=== PATIENT | male | born 1950 | race Caucasian/White ===

== ENCOUNTER 2024-04-26 04:30 | Observation (INO) | payer MEDICARE, SELFPAY ==
[2024-04-26 04:20] VITALS: BP 165/70; PULSE 62; RESP 18; TEMP 36.7; O2SAT 95
--- NOTE | 2024-04-26 04:27 | HP.PCM.HOS_ITS ---
[facility] - General General Date of Admission: 04/26/24 Date of Service: 04/26/24 Chief Complaint: Left DFU with Cellulitis, Elevated Troponin and AMS. HPI Narrative JEAN CARLOS HUGHES, is a 73 M with a past medical history of essential hypertension, hyperlipidemia, DM-2; uncontrolled with hyperglycemia, diabetic neuropathy, CAD; s/p CABG x 3 (~2009) by Dr. Salas at the [facility], history of CHF; with recent exacerbation treated at [facility] in Late February 2024, PVD; s/p femoral bypasses of both lower extremities, chronic LE lymphedema; with chronic venous stasis followed by Home Health RN, history of CVA, CKD; likely stage III, history of cholecystectomy, depression, OA, listed allergy to PCN and recently diagnosed DFU of the 2nf toe of the Left foot ~6 weeks ago with failure to resolve after full courses of oral Keflex and Bactrim prescribed by his PCP who was directly transferred from [facility] ER to for ongoing care of Left DFU with cellulitis and suspected osteomyelitis complicated by elevated initial troponin of ~1.2K pg/mL and altered mental status. Mr. Hughes reports his acute symptoms began approximately 3 days prior to admission with dizziness, shakiness and intermittent chills. Also according to the records his grandson came to visit him from [place] today and found him confused and lethargic and therefore had him sent to the ER at [facility] with documentation revealing he was only oriented to self and place upon his initial evaluation. He denies related fever, chest pain, chest pressure, heart racing or palpitations and he further states he has had no active cardiac issues since his CABG and he is chronically inactive. He also denies a known history of osteomyelitis, previous amputations or similar previous episodes. After his arrival here he had his pulses checked via doppler and was markedly diminished on the Left. His CT scan of the abdomen [facility] Medical History (Updated 04/26/24 @ 04:[address] Doni Carter, DO) Diabetes Congestive heart failure (CHF) Stroke/cerebrovascular accident Home Medications ?Medication ?Instructions ?Recorded ?Last Taken ?Type atorvastatin 40 mg tablet 40 mg PO DAILY 04/26/24 Unknown History bupropion HCl 300 mg 24 hr tablet, 300 mg PO DAILY 04/26/24 Unknown History extended release glimepiride 1 mg tablet 1 mg PO DAILY 04/26/24 Unknown History lisinopril 20 mg tablet 20 mg PO DAILY 04/26/24 Unknown History meloxicam 7.5 mg tablet 7.5 mg PO DAILY PRN back 04/26/24 Unknown History Allergy/AdvReac Type Severity Reaction Status Date / Time Penicillins Allergy PT UNSURE Unverified 04/26/24 05:13 OF REACTION Surgical History (Updated 04/26/24 @ 04:39 by Lisa Agarwal) History of cholecystectomy Hx of CABG Social History Smoking Status: Current every day smoker tobacco type: cigarettes and smokeless tobacco Assessment & Plan Assessment/Plan (1) Diabetic foot ulcer associated with diabetes mellitus due to underlying condition: QUALIFIERS: Diabetic foot ulcer location: toe Laterality: left Non-pressure ulcer stage: unspecified non-pressure ulcer stage Qualified Code(s): E08.621 - Diabetes mellitus due to underlying condition with foot ulcer; L97.529 - Non-pressure chronic ulcer of other part of left foot with unspecified severity (2) Cellulitis: (3) DM type 2, uncontrolled, with lower extremity ulcer: (4) Elevated troponin: PLAN: Plan 1. Left DFU with cellulitis and suspected osteomyelitis with listed allergy to PCN in the setting of DM-2; uncontrolled with hyperglycemia - Admit to PCU under contact precautions. Start broad-spectrum antibiotic coverage with IV Vancomycin and IV Levaquin and await culture and sensitivity data. Check CT scan of the Left Foot to confirm suspicion of osteomyelitis. Check HgbA1c to objectively assess quality of diabetic control. Give Tylenol prn for [id number] (level 1-5/10) pain or fever. Give Morphine IV prn for severe (level 6-10/10) pain. Keep NPO except for sips, ice chips and medications until need podiatry can evaluate and need for I&D has been ruled out. Finally, we will consult Dr. Hedrick of the podiatry service to see this patient on-rounds in the AM for further recommendations with help appreciated in advance. 2. Elevated initial troponin of ~1.2K pg/mL present on admission likely due to NSTEMI-II in the setting of known CAD; sp CABG complicating #1 - Continue ECASA and statin plus give full-dose Lovenox. Serialize troponin. Check echocardiogram to evaluate LVEF. Finally, we will consult [facility] to see this patient on-rounds in the AM with likely need for surgical intervention to treat #1 with need for formal preoperative cardiac risk evaluation with help appreciated in advance. 3. Metabolic Encephalopathy was present during admission to [facility] arising from #1 & #2 - Patient's mental status has apparently improved with his initial round of treatment. 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 Otherwise, continue supportive care outlined above and monitor for improvement. 4. Essential hypertension - Continue home regimen plus give prn IV Hydralazine for systolic blood pressure > 160 mmHg. 5. Hyperlipidemia - Resume statin and check Lipid Profile in light of #2. 6. History of CHF - Apparently stable with no evidence of acute flare at this time. Echocardiogram pending to evaluate LVEF for #2. 7. History of CVA - Noted. 8. History of cholecystectomy - Noted. 9. Depression - Continue home medications as previous. 10. OA - Give Tylenol prn. 11. DVT prophylaxis - Patient on full-dose Lovenox for #2. Total time: Approximately 75 minutes. Charges/Coding Visit Charges Inpatient E&M: 57672 Init Hosp L3
--- NOTE | 2024-04-26 04:27 | PCM.HP.STD ---
[facility] - General General Date of Admission: 04/26/24 Date of Service: 04/26/24 Chief Complaint: Left DFU with Cellulitis, Elevated Troponin and AMS. HPI Narrative JEAN CARLOS HUGHES, is a 73 M with a past medical history of essential hypertension, hyperlipidemia, DM-2; uncontrolled with hyperglycemia, diabetic neuropathy, obesity; with BMI of 39.4 this admission with suspected JADA, chronic tobacco abuse; ongoing with patient stating he is trying to quit, CAD; s/p CABG x 3 (~2009) by Dr. Salas at the [facility], history of CHF; with recent exacerbation treated at [facility] in Late February 2024, PVD; s/p femoral bypasses of both lower extremities, chronic LE lymphedema; with chronic venous stasis followed by Home Health RN, history of CVA, CKD; likely stage III, history of cholecystectomy, history of appendectomy, depression, OA; s/p bilateral TKR's and THR, listed allergy to PCN and recently diagnosed DFU of the 2nf toe of the Left foot ~6 weeks ago with failure to resolve after full courses of oral Keflex and Bactrim prescribed by his PCP who was directly transferred from [facility] ER to [facility] for ongoing care of Left DFU with cellulitis and suspected osteomyelitis with leukocytosis of 14.6K present on admission complicated by elevated initial troponin of 1.253K pg/mL and altered mental status. Mr. Hughes reports his acute symptoms began approximately 3 days prior to admission with dizziness, shakiness and intermittent chills. Also according to the records his grandson came to visit him from [place] today and found him confused and lethargic and therefore had him sent to the ER at [facility] with documentation revealing he was only oriented to self and place upon his initial evaluation. He denies related fever, chest pain, chest pressure, heart racing or palpitations and he further states he has had no active cardiac issues since his CABG and he is chronically inactive. He states his sugars are typically between 120-150 mg/dL but they trend higher if he eats late and/or has desert. He also denies a known history of osteomyelitis, previous amputations or similar previous episodes. After his arrival here he had his pulses checked via doppler and was markedly diminished on the Left. His CT scan of the head at [facility] was negative for acute pathologic changes but did show a chronic appearing lacunar infarct in the Right thalamus with small bilateral mastoid effusions that were nonspecific. Also his Ct scan of the abdomen and pelvis there showed no acute abnormality but did reveal cirrhotic morphology of the liver compatible with portal venous hypertension including a dilated main pulmonary vein along with a fusiform infrarenal AAA measuring ~3.9 cm with severe atherosclerosis of the vascular system and atrophy of the Left kidney likely related to chronic ischemia with followup recommended every 2 years. CXR done there showed no acute changes with sternotomy wires noted. He was then treated with IV Vancomycin and IV Merrem along with a 1L bolus of NS there and then the hospitalist service here was contacted to arrange transfer due to his medical complexity. He was then admitted to the PCU for ongoing care for a stay that is expected to extend beyond 2 midnights. [facility] Medical History (Updated 04/26/24 @ 06:[address] Doni Carter DO) Diabetes Congestive heart failure (CHF) Stroke/cerebrovascular accident Home Medications ?Medication ?Instructions ?Recorded ?Last Taken ?Type atorvastatin 40 mg tablet 40 mg PO DAILY 04/26/24 Unknown History bupropion HCl 300 mg 24 hr tablet, 300 mg PO DAILY 04/26/24 Unknown History extended release glimepiride 1 mg tablet 1 mg PO DAILY 04/26/24 Unknown History lisinopril 20 mg tablet 20 mg PO DAILY 04/26/24 Unknown History meloxicam 7.5 mg tablet 7.5 mg PO DAILY PRN back 04/26/24 Unknown History Allergy/AdvReac Type Severity Reaction Status Date / Time Penicillins Allergy PT UNSURE Unverified 04/26/24 05:13 OF REACTION Surgical History (Updated 04/26/24 @ 06:[address] Doni Carter DO) History of cholecystectomy Hx of CABG Social History Smoking Status: Current every day smoker tobacco type: cigarettes and smokeless tobacco ROS ROS Narrative Review of systems: Constitutional: Patient admits to intermittent chills and vertigo with confusion noted upon his arrival to [facility] as per HPI. He denies fever. Eyes: Patient denies visual changes or discharge from eyes. ENT: Patient denies ear pain, runny nose or sore throat. CV: Patient denies chest pain, chest pressure, palpitations or heart racing. Resp: Patient denies SOB or cough. GI: Patient denies abdominal pain, nausea, vomiting, constipation or diarrhea. : Patient denies dysuria or hematuria. MSK: Patient admits to persistent ~1 cm ulceration over the dorsal aspect his Left 2nd toe along with scabbing over three toes of his Right foot along with diminished doppler pulses of his Left foot as per HPI. Skin: Patient admits to chronic LE lymphedema with chronic venous stasis as per HPI. Allergy: Patient denies lip swelling, tongue swelling or urticaria. Hematology: Patient denies easy bleeding or easy bruising. Psychology: Patient denies uncontrolled depression or anxiety. 14 point ROS otherwise negative except for positives noted above in HPI. Physical Exam Const alert, oriented x3 and no apparent distress Constitutional Narrative: Patient is obese and appears nontoxic. General Appearance: cooperative HEENT normocephalic, head/scalp atraumatic, hearing grossly normal bilaterally and moist oral mucous membranes Eyes PERRL and EOMs intact bilaterally Neck no lymphadenopathy and supple Resp normal respiratory effort, no retractions, no use of accessory muscles and clear to auscultation bilaterally Cardio regular rate and regular rhythm GI normal to inspection, nondistended, normoactive bowel sounds, soft to palpation, non-tender and non-distended GI Narrative: Obese. Extremity Extremity Narrative: Bilateral LE lymphedema with chronic venous stasis changes along with ~ 1 cm ulceration over the DIP joint of his Left 2nd toe. Skin Skin Narrative: Bilateral LE lymphedema with chronic venous stasis changes along with ~ 1 cm ulceration over the DIP joint of his Left 2nd toe. Neuro oriented x3, CN's II-XII intact bilaterally, moves all extremities and no focal motor deficits Sensorium / Orientation: awake, alert, oriented to person, oriented to place and oriented to time Speech: speech normal Psych affect normal Results Medical Records Data Attestation: I reviewed the patient's medical records Lab / Micro Data Attestation: I reviewed the patient's lab results. Assessment & Plan Assessment/Plan (1) Diabetic foot ulcer associated with diabetes mellitus due to underlying condition: QUALIFIERS: Diabetic foot ulcer location: toe Laterality: left Non-pressure ulcer stage: unspecified non-pressure ulcer stage Qualified Code(s): E08.621 - Diabetes mellitus due to underlying condition with foot ulcer; L97.529 - Non-pressure chronic ulcer of other part of left foot with unspecified severity (2) Cellulitis: QUALIFIERS: Site of cellulitis: extremity Site of cellulitis of extremity: toe Laterality: left Qualified Code(s): L03.032 - Cellulitis of left toe (3) Elevated troponin: (4) DM type 2, uncontrolled, with lower extremity ulcer: (5) Metabolic encephalopathy: (6) History of coronary artery bypass graft x 3: (7) History of femoropopliteal bypass: (8) History of CHF (congestive heart failure): PLAN: Plan 1. Left DFU with cellulitis and leukocytosis of 14.6K present on admission with suspected osteomyelitis with listed allergy to PCN in the setting of DM-2; uncontrolled with hyperglycemia and diabetic neuropathy - Admit to PCU under contact precautions. Start broad-spectrum antibiotic coverage with IV Vancomycin and IV Levaquin and await culture and sensitivity data. Check CT scan of the Left Foot to confirm suspicion of osteomyelitis. Check HgbA1c to objectively assess quality of diabetic control. Give Tylenol prn for [id number] (level 1-5/10) pain or fever. Give Morphine IV prn for severe (level 6-10/10) pain. Keep NPO except for sips, ice chips and medications until need podiatry can evaluate and need for I&D has been ruled out. Finally, we will consult Dr. Hedrick of the podiatry service to see this patient on-rounds in the AM for further recommendations with help appreciated in advance. 2. Elevated initial troponin of ~1.2K pg/mL present on admission likely due to NSTEMI-II in the setting of known CAD; sp CABG complicating #1 - Continue ECASA and statin plus give full-dose Lovenox. Serialize troponin. Check echocardiogram to evaluate LVEF. Finally, we will consult [facility] to see this patient on-rounds in the AM with likely need for surgical intervention to treat #1 with need for formal preoperative cardiac risk evaluation with help appreciated in advance. 3. PVD; s/p femoral bypasses of both lower extremities with diminished doppler pluses on the Left present on admission adding to the pathology of #1 & #[address] scan of the abdomen and pelvis there showed no acute abnormality but did reveal cirrhotic morphology of the liver compatible with portal venous hypertension including a dilated main pulmonary vein along with a fusiform infrarenal AAA measuring ~3.9 cm with severe atherosclerosis of the vascular system and atrophy of the Left kidney likely related to chronic ischemia with followup recommended every 2 years - We will consult vascular surgery to see this patient on-rounds in the AM for further recommendations with help appreciated in advance. 4. Metabolic Encephalopathy was present during admission to [facility] arising from #1 - #3 - Patient's mental status has apparently improved with his initial round of treatment. 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 Otherwise, continue supportive care outlined above and monitor for improvement. 5. Chronic Tobacco Abuse; ongoing and adding to the pathology of #1 - #4 - Tobacco cessation will be strongly encouraged with Nicotine patch offered to control cravings. 6. Essential hypertension - Continue home regimen plus give prn IV Hydralazine for systolic blood pressure > 160 mmHg. 7. Hyperlipidemia - Resume statin and check Lipid Profile in light of #2. 8. History of CHF - Apparently stable with no evidence of acute flare at this time. Echocardiogram pending to evaluate LVEF for #2. 9. History of CVA with Head CT at previous hospital revealing chronic appearing lacunar infarct in the Right thalamus with small bilateral mastoid effusions that were nonspecific - Noted. 10. Obesity; with BMI of 39.4 this admission with suspected JADA 11. History of cholecystectomy - Noted. 12. Depression - Continue home medications as previous. 13. OA; s/p bilateral TKR's and THR - Give Tylenol prn. 14. DVT prophylaxis - Patient on full-dose Lovenox for #2. Total time: Approximately 75 minutes. Charges/Coding Visit Charges Inpatient E&M: 92658 Init Hosp L3
[2024-04-26 04:28] VITALS: BMI 39.4
--- NOTE | 2024-04-26 04:33 | CT_ITS ---
CT LEFT LOWER EXTREMITY WITHOUT CONTRAST CLINICAL INDICATION: Left DFU; evaluate for osteomyelitis. TECHNIQUE: Axial CT images of the LEFT lower extremity was performed without IV contrast material. Coronal and sagittal reformats were provided. The protocol utilizes one or more of the following dose reduction techniques: automated exposure control, adjustment of mA and/or kV according to patient size,and/or use of iterative reconstruction technique. RADIATION DOSAGE (If Supplied By Facility): CTDIvol = ( 15.35 ) mGy, DLP = ( 499.60 ) mGycm COMPARISON: No relevant prior comparison study available FINDINGS: Bones: Osseous structures are essentially unremarkable without evidence of fracture or dislocation. No lytic or blastic osseous masses. Soft Tissues: Diffuse soft tissue swelling and edema no evidence of abnormal fluid collection or drainable abscess. No gas is seen in the soft tissues. Atrophic changes of the deep muscular structures. CT/Extremity Lower without Contra IMPRESSION: 1. Diffuse soft tissue swelling and edema. 2. No evidence of drainable abscess or gas in the soft tissues. 3. No evidence of destructive bony process. Electronically Signed: Mitchell Del Cid MD at 9:08 EDT ,
--- NOTE | 2024-04-26 04:43 | ECHOCS_ITS ---
Reason For Study: s/p NJ Procedure This was a 2D Doppler, Color Flow transthoracic echocardiogram. Contrast injection was performed. Exam performed portable in patient room. Left Ventricle Normal LV size. Mild concentric left ventricular hypertrophy. The left ventricular ejection fraction is 45 %. There is mild global hypokinesis of the left ventricle. Right Ventricle Normal RV size. Normal systolic function. Atria The left atrium is moderately enlarged. Normal right atrium. Mitral Valve Bileaflet diffuse mitral valve thickening. Mild (1+) eccentric mitral valve insufficiency. Tricuspid Valve Normal tricuspid valve. Mild to moderate (1-2+) tricuspid valve insufficiency. Pulmonary artery systolic pressure is 46 mmHg. Aortic Valve Trisinus/trileaflet aortic valve. Mild focal aortic valve calcification. Great Vessels Normal aortic root. Pericardium/Pleural No pericardial effusion. Medication Diluted definity 2.5ml given slow IV push to enhance endocardial definition. MMode/2D Measurements & Calculations LVIDd: 4.9 cm IVSd: 1.3 cm LVOT diam: 2.2 cm LVIDs: 3.9 cm LVPWd: 1.2 cm LVOT area: 3.7 cm2 RVDd: 4.3 cm FS: 19.3 % LAV(MOD-bp): 101.7 ml LVAd ap4: 30.0 cm2 SV(MOD-sp4): 48.6 ml LAV(MOD-bp) Indexed: 42.0 ml/m2 LVLd ap4: 7.4 cm LAV(MOD-sp2): 107.1 ml EDV(MOD-sp4): 101.1 ml LAV(MOD-sp4): 96.6 ml EDV(sp4-el): 104.0 ml LVAs ap4: 20.0 cm2 LVLs ap4: 6.6 cm ESV(MOD-sp4): 52.5 ml ESV(sp4-el): 51.4 ml EF(MOD-sp4): 48.0 % EF(sp4-el): 50.6 % SV(sp4-el): 52.6 ml LA A4 area: 30.4 cm2 RA A4 area: 22.0 cm2 TAPSE: 1.4 cm Doppler Measurements & Calculations MV E max kristian: 137.6 cm/sec Lat Peak E' Kristian: 6.5 cm/sec Med Peak E' Kristian: 5.0 cm/sec E/E' lat: 21.3 E/E' med: 27.3 MV V2 max: 137.9 cm/sec Ao V2 max: 154.3 cm/sec LV V1 max: 119.0 cm/sec MV max P.6 mmHg Ao max P.5 mmHg LV V1 max P.7 mmHg MV V2 mean: 51.7 cm/sec Ao V2 mean: 107.5 cm/sec LV V1 mean P.1 mmHg MV mean P.7 mmHg Ao mean P.2 mmHg LV V1 mean: 82.8 cm/sec MV V2 VTI: 41.0 cm Ao V2 VTI: 36.4 cm LV V1 VTI: 26.8 cm MVA(VTI): 2.4 cm2 AV (velocity ratio): 0.73 JAYSON(I,D): 2.7 cm2 JAYSON(V,D): 2.9 cm2 SV(LVOT): 98.9 ml PA V2 max: 93.1 cm/sec TR max kristian: 329.0 cm/sec PA max PG (full): 1.2 mmHg TR max P.3 mmHg ECHO/Echo Complete W/ Contrast Interpretation Summary The left ventricular ejection fraction is 45 %. Normal LV size. Mild (1+) eccentric mitral valve insufficiency. Mild concentric left ventricular hypertrophy. Mild to moderate (1-2+) tricuspid valve insufficiency. Pulmonary artery systolic pressure is 46 mmHg. Ordering Physician: Doni Carter Referring Physician: Thao Diaz Performed By: Briana Conte RVT, RDCS and Student
--- NOTE | 2024-04-26 04:45 | SDCEKG_ITS ---
Test Reason : CP ADMIT Blood Pressure : / mmHG Vent. Rate : 065 BPM Atrial Rate : 000 BPM P-R Int : 000 ms QRS Dur : 148 ms QT Int : 440 ms P-R-T Axes : 000 -46 100 degrees QTc Int : 457 ms Atrial fibrillation Left axis deviation Non-specific intra-ventricular conduction block Minimal voltage criteria for LVH, may be normal variant ( Tyler product ) Abnormal ECG No previous ECGs available Confirmed by Al Lorenzo ([id number]), features editor CHELY LOZA ([id number]) on 04/28/2024 9:22:52 AM Referred By: Confirmed By:Al Lorenzo
[2024-04-26 04:47] VITALS: BMI 17.9
[2024-04-26] MEDS: 0.9% Normal Saline (1000mL) 1,000 ML 70 ML IV ×2 (05:50→22:09)
[2024-04-26] MEDS: Enoxaparin 60 MG/0.6 ML Syringe SC (06:04)
[2024-04-26] MEDS: Pravastatin 40 MG Tablet PO ×2 (06:04→22:13)
[2024-04-26] MEDS: Aspirin 325 MG Tablet PO (06:04)
[2024-04-26 06:37] VITALS: BMI 39.4
--- NOTE | 2024-04-26 06:52 | PN_ITS ---
Assessment & Plan Assessment/Plan (1) DM type 2, uncontrolled, with lower extremity ulcer: PLAN: Plan Patient is a 73-year-old gentleman with multiple comorbidities including coronary artery disease with previous CABG, peripheral arterial disease with femoral bypasses involving both lower extremities who was transferred from [facility] on account of left DFU with cellulitis and suspected osteomyelitis as well as decreased pulses in the left lower extremities. Patient was also found to have elevated troponin on admission. Subsequently admitted to a monitored bed for further management. Patient initial assessment including history and physical, diagnostic data and management orders reviewed will follow.
[2024-04-26 06:53] LABS: ALB/GLOB Ratio 0.7 RATIO (0.9-2.4); AST(SGOT) 33 U/L (15-37); Alanine Aminotransfer ALT/SGPT 37 U/L (16-61); Albumin, Serum 2.7 g/dL (3.2-5.0); Alkaline Phosphatase 196 U/L (45-117); Anion Gap 6 (5-15); BUN 18 mg/dL (7-18); BUN/Creat Ratio 11.8 RATIO (10-20); Calcium,Total 8.4 mg/dL (8.5-10.1); Chloride 105 mmol/L (98-107); Creatinine, Serum 1.53 mg/dL (0.70-1.30); EST Glomerular Filtration Rate 48 mL/min (>60); Est Glom Filt Rate - Afr Amer 57 mL/min (>60); Estimated Creatinine Clearance 56.13 ml/min; Globulin 4.1 g/dL (2.2-4.2); Glucose 92 mg/dL (74-106); Magnesium 2.1 mg/dL (1.6-2.6); Potassium 3.9 mmol/L (3.5-5.1); Protein, Total 6.8 g/dL (6.4-8.2); Sodium Level 136 mmol/L (136-145)
[2024-04-26 06:57] LABS: Troponin-I HS 667 pg/mL (3.0-78.0)
[2024-04-26 06:59] LABS: Erythrocyte Sedimentation Rate 43 mm/hr (0-20)
[2024-04-26 07:02] LABS: Absolute Lymphocyte Count 0.73 X10^3/uL (0.83-4.51); Absolute Neutrophil Count 8.9 X10^3/uL (2.0-7.7); Basophil# 0.03 X10^3/uL; Basophil% 0.3 % (0-1); Eosinophil# 0.03 X10^3/uL; Eosinophils% 0.3 % (0-5); Hematocrit 42.3 % (40-54); Hemoglobin 13.5 g/dL (13.0-16.5); Lymphocyte # 0.73 X10^3/ul (0.83-4.51); Lymphocyte % 7.1 % (19-41); Mean Corp Hgb Conc 31.9 g/dL (32-36); Mean Corpuscular Hgb 29.9 pg (27.0-32.0); Mean Corpuscular Volume 93.8 fL (80-94); Mean Platelet Vol. 11.1 fl (6.2-12.0); Monocyte# 0.51 X10^3/uL; NRBC Flagged by Analyzer 0 % (0-5); Neutrophil # 8.86 X10^3/uL (2.7-7.7); Neutrophil % 86.6 % (47-70); Platelet Count 176 K/mm3 (150-450); RBC Distribution Width CV 16.8 % (11.6-14.6); RBC Distribution Width SD 57.7 fl (35.1-43.9); Red Blood Count 4.51 M/mm3 (4.6-6.2); White Blood Count 10.2 K/mm3 (4.4-11.0)
[2024-04-26 07:05] LABS: Phosphorus 2.5 mg/dL (2.5-4.9); Thyroid Stim Hormone (TSH) 1.99 uIU/mL (0.358-3.74)
[2024-04-26 07:09] VITALS: O2SAT 96
[2024-04-26 07:22] LABS: Bedside Glucose 78 mg/dL (74-106)
--- NOTE | 2024-04-26 08:08 | PCM.CONS.GEN ---
Assessment & Plan Assessment/Plan (1) Cellulitis: QUALIFIERS: Site of cellulitis: extremity Site of cellulitis of extremity: toe Laterality: left Qualified Code(s): L03.032 - Cellulitis of left toe (2) Non-pressure chronic ulcer of other part of left foot with bone involvement without evidence of necrosis: (3) Diabetes mellitus with diabetic polyneuropathy: (4) Type 2 diabetes mellitus with foot ulcer: (5) Diabetic foot ulcer associated with diabetes mellitus due to underlying condition: QUALIFIERS: Diabetic foot ulcer location: toe Laterality: left Non-pressure ulcer stage: unspecified non-pressure ulcer stage Qualified Code(s): E08.621 - Diabetes mellitus due to underlying condition with foot ulcer; L97.529 - Non-pressure chronic ulcer of other part of left foot with unspecified severity (6) Unspecified atherosclerosis of [place] arteries of extremities, bilateral legs: (7) Lymphedema, not elsewhere classified: (8) Chronic venous stasis dermatitis of both lower extremities: PLAN: Plan Patient was seen and evaluated this a.m. Lower extremity: There is bilateral lower extremity lymphedema noted with hemosiderin deposition about the lower extremity and rubor consistent with chronic venous stasis changes/stasis dermatitis. There is multiple excoriations/scabs to the dorsal aspect of the right foot and along the base of the right digits. There is a ulceration noted to the dorsal aspect of the second digit overlying the proximal interphalangeal joint with likely exposure of the proximal phalanx head as ulceration does probe deep. No evidence of erythema, no purulent drainage, no malodor, no palpable fluctuance/bogginess noted, no visible abscess formation, no lymphangitic streaking. Digit ulceration overlying the second proximal interphalangeal joint of the left foot measures 0.6 cm x 0.6 cm x 0.2 cm. WBC 10.2; ESR 43; CRP 87.90; albumin 2.7 Swab cultures 04/26/2024 demonstrate Staph aureus protein A PCR negative; MRSA PCR negative Digit was dressed with Betadine and dry sterile dressing. Digit ulceration has been present for 6 weeks and does appear stable despite possible exposure of the proximal phalanx head. Nursing may change dressing every other day. CT left lower extremity 04/26/2024: Impression diffuse soft tissue edema, no evidence of abscess or gas, no evidence of destructive bony process. LEAS 04/26/24: Right LELO 0.59 with moderate arterial insufficiency, PVR/Doppler waveforms diminished at rest; right digital indices 0.28. Left LELO 0.66 with moderate arterial insufficiency, PVR/Doppler waveform diminished at rest; left digital indices 0.23. Arterial duplex demonstrates patent left femoral-popliteal bypass with greater than 50% stenosis at the proximal anastomosis, patent right lower extremity arteries with greater than 50% stenosis of the [place] superficial femoral artery. Medicine team currently following for medical management, they are greatly appreciated. Vascular surgery following for likely vascular intervention, their assistance is greatly appreciated. Wound nurse following for assistance in dressing changes, she is appreciated I did discuss with patient at bedside this morning that given his lack of pedal pulses we would await arterial studies and vascular consultation prior to any intervention, patient is understanding of this. Discussed with the patient ulceration is likely secondary to ill fitting shoe gear and his hammertoe deformity causing pressure to the dorsal aspect of the second digit leading to erosive changes at the skin with subsequent ulceration. Discussed with patient given his history of vascular intervention of femoral bypass, CAD s/p CABG, and continued arterial disease that it is recommended he stop smoking as this is also impacting healing status. After review of his arterial studies with the digital indices of 0.23 patient would lack sufficient healing despite surgical intervention by podiatry team and likely lead to more proximal amputation. Ulcerative site is currently stable and demonstrating no signs of acute OM. No urgent podiatric intervention at this time. It is recommended patient undergo revascularization prior to any intervention to optimize healing and surgical outcome. Following intervention podiatry will reevaluate with likely plans for second digit amputation of the left foot next week. Podiatry will continue to follow and reevaluate postintervention. Jr. Mialgros Scott.P.M. [facility] [phone] HPI Consult Data Date of Consult: 04/26/24 HPI Narrative Reason for Consultation: Second digit ulceration of the left foot HPI Narrative: JEAN CARLOS HUGHES, is a 73 M with PMHx of uncontrolled DM type II with peripheral polyneuropathy; HTN; HL; Hx of CHF; Hx of PVD s/p femoral bypass of both lower extremities; chronic lymphedema and chronic venous stasis dermatitis; obesity; Hx of CVA, CKD; chronic tobacco abuse; CAD S/PE CABG x 3 (2009). 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 Patient states that the ulceration to the dorsal aspect of the second digit has been present for roughly 6 weeks and has not demonstrated improvement. His PCP prescribed course of oral antibiotic, Keflex and Bactrim, which the patient did complete. He states that 3 days prior to his admission he began to have intermittent chills and also reported some dizziness and lethargy and did go to ER at [facility]. While in the ER he was given IV Vanco and IV meropenem prior to his transfer. Upon admission to [facility] he was found to have elevated troponins; ESR 43; alkaline phosphatase 196; CRP 87.9; WBC 10.2; hemoglobin 13.5; hematocrit 42.3; albumin 2.7; sodium 136; potassium 3.9; BUN 18; creatinine 1.53. Swab cultures was obtained of the second digit. He also underwent CT of the left lower extremity for evaluation of osteomyelitis. He was consulted to podiatry for second digit ulceration of the left foot with concern of osteomyelitis. [facility] Medical History Diabetes Congestive heart failure (CHF) Stroke/cerebrovascular accident Home Medications ?Medication ?Instructions ?Recorded ?Last Taken ?Type atorvastatin 40 mg tablet 40 mg PO DAILY 04/26/24 Unknown History bupropion HCl 300 mg 24 hr tablet, 300 mg PO DAILY 04/26/24 Unknown History extended release glimepiride 1 mg tablet 1 mg PO DAILY 04/26/24 Unknown History lisinopril 20 mg tablet 20 mg PO DAILY 04/26/24 Unknown History meloxicam 7.5 mg tablet 7.5 mg PO DAILY PRN back 04/26/24 Unknown History Allergy/AdvReac Type Severity Reaction Status Date / Time Penicillins Allergy PT UNSURE Verified 04/26/24 07:31 OF REACTION Surgical History History of cholecystectomy Hx of CABG Social History Smoking Status: Current every day smoker tobacco type: cigarettes and smokeless tobacco ROS Constitutional Constitutional: Denies chills, fever(s) or malaise Eyes Eyes: Denies blurry vision, diplopia or loss of vision ENT HEENT: Denies dysphagia, nasal congestion, rhinorrhea or sore throat Cardiovascular Cardiovascular: Denies chest pain, claudication or palpitations Respiratory/Chest Respiratory/Chest: Denies cough, dyspnea or shortness of breath at rest Gastrointestinal Gastrointestinal: Denies abdominal pain, anorexia, constipation, diarrhea, nausea or vomiting Genitourinary Genitourinary: Denies dysuria, hematuria or urinary urgency Musculoskeletal Musculoskeletal: Denies joint pain, joint stiffness or joint swelling Integumentary Integumentary: Denies jaundice, lesions, pruritus or rash Neurologic Neurologic: Denies dizziness, numbness or seizures Psychiatric Psychiatric: Denies anxiety or depression Endocrine Endocrinology: Denies cold intolerance, heat intolerance, polydipsia or polyphagia Hematologic/Lymphatic Hematologic/Lymphatic: Denies easy bleeding or easy bruising Allergic/Immunologic Allergic/Immunologic: Denies wheezing Physical Exam Const alert, oriented x3 and no apparent distress Constitutional Narrative: Nontoxic-appearing General Appearance: cooperative Nutritional Appearance: obese HEENT normocephalic Eyes General Eye: normal appearance of both eyes Neck General: normal visual inspection Lymph Lymphatic: no lymphadenopathy noted and lymphedema Resp normal respiratory effort Cardio regular rate and regular rhythm Extremity Extremity Narrative: Vascular: Nonpalpable DP and PT pedal pulses bilateral foot. Doppler demonstrates monophasic DP and PT pulses bilateral. CFT is sluggish greater than 5 seconds to the digits bilateral. Temperature gradient warm to cool of the left lower extremity warm to cold on the left lower extremity with difference noted to left. Hair growth is absent to the digits and lower leg bilateral. Neurologic: Gross sensation intact. Light touch sensation is absent. Protective sensation is diminished to the foot bilateral consistent with diabetic peripheral polyneuropathy. Musculoskeletal: Muscle strength 5 of 5 age-appropriate. There is decreased range of motion of the ankle joint in dorsiflexion with the knee extended without pain or crepitus bilateral. Decreased range of motion of the first metatarsophalangeal joint without pain or crepitus bilateral. There is semirigid hammertoe deformity noted to bilateral foot. No pain to palpation about the second digit ulceration of the left foot. Dermatologic: There is bilateral lower extremity lymphedema noted with hemosiderin deposition about the lower extremity and rubor consistent with chronic venous stasis changes/stasis dermatitis. There is multiple excoriations/scabs to the dorsal aspect of the right foot and along the base of the right digits. There is a ulceration noted to the dorsal aspect of the second digit overlying the proximal interphalangeal joint with likely exposure of the proximal phalanx head as ulceration does probe deep. No evidence of erythema, no purulent drainage, no malodor, no palpable fluctuance/bogginess noted, no visible abscess formation, no lymphangitic streaking. Skin no rashes or lesions noted and no jaundice Neuro moves all extremities Lab / Micro Data 04/26/24 06:17 04/26/24 06:17 Labs: Laboratory Results - last 24 hr 04/26/24 05:53: POC Glucose 78 04/26/24 06:17: WBC 10.2, RBC 4.51 L, Hgb 13.5, Hct 42.3, MCV 93.8, MCH 29.9, MCHC 31.9 L, RDW Std Deviation 57.7 H, RDW Coeff of Claritza 16.8 H, Plt Count 176, MPV 11.1, Immature Gran % (Auto) 0.700, Neut % (Auto) 86.6 H, Lymph % (Auto) 7.1 L, [place] % (Auto) 5.0, Eos % (Auto) 0.3, Baso % (Auto) 0.3, Absolute Neuts (auto) 8.9 H, Absolute Lymphs (auto) 0.73 L, Nucleated RBC % 0, ESR 43 H, Sodium 136, Potassium 3.9, Chloride 105, Carbon Dioxide 25.0, Anion Gap 6, BUN 18, Creatinine 1.53 H, Estim Creat Clear Calc 56.13, Est GFR (MDRD) Af Amer 57 L, Est GFR (MDRD) Non-Af 48 L, BUN/Creatinine Ratio 11.8, Glucose 92, Calcium 8.4 L, Phosphorus 2.5, Magnesium 2.1, Total Bilirubin 1.20 H, AST 33, ALT 37, Alkaline Phosphatase 196 H, Troponin I High Sens 667 H*, C-React Prot Ext Range 87.90 H, Total Protein 6.8, Albumin 2.7 L, Globulin 4.1, Albumin/Globulin Ratio 0.7 L, TSH 1.99
--- NOTE | 2024-04-26 08:21 | WOUNDNOTE ---
wound photo: right foot
--- NOTE | 2024-04-26 08:23 | WOUNDNOTE ---
wound photo: left 2nd toe
--- NOTE | 2024-04-26 08:23 | PCM.RX.CS ---
Consult Antibiotic Management Pharmacy has been consulted to manage selected antibiotic: Vancomycin Type of Intervention Type of Consult: New start Suspected Infection Suspected Infection: Skin/Soft tissue Labs Labs: Sodium 136 mmol/L (136-145) 04/26/24 06:17 Potassium 3.9 mmol/L (3.5-5.1) 04/26/24 06:17 Chloride 105 mmol/L (98-107) 04/26/24 06:17 Carbon Dioxide 25.0 mmol/L (21.0-32.0) 04/26/24 06:17 Anion Gap 6 (5-15) 04/26/24 06:17 BUN 18 mg/dL (7-18) 04/26/24 06:17 Creatinine 1.53 mg/dL (0.70-1.30) H 04/26/24 06:17 Est GFR (MDRD) Af Amer 57 mL/min (>60) L 04/26/24 06:17 Est GFR (MDRD) Non-Af 48 mL/min (>60) L 04/26/24 06:17 BUN/Creatinine Ratio 11.8 RATIO (10-20) 04/26/24 06:17 Glucose 92 mg/dL (74-106) 04/26/24 06:17 Dosing Weight Weight used for dosin.7 kg Estimated Creatinine Clearance Estimated Creatinine Clearance: 56.1 Goal Trough Goal Trough: 15-20 mcg/mL Pharmacy Plan for Drug Dosing Pharmacy Plan for Drug Dosing: NEW START IV VANCOMYCIN Consulting Physician: Dr. Carter Indication: Cellulitis Goal Trough: 15-20 SrCr: 1.53 CrCl: 56.1 Comments: Vancomycin 1000mg running when received in ED from [facility] Vancomycin Dose: 1000mg Q12H to start at 1600 04/26/24 Pending Level: Vancomycin trough @ 0330 04/28/24 Pharmacy Service will continue to monitor and adjust dosing as required. Follow-Up Labs Follow-Up Labs: Trough: Vancomycin (04/28/24 @ 03:30)
[2024-04-26] MEDS: Ascorbic Acid 500 MG Tablet 1000 MG PO ×2 (08:24→16:09)
[2024-04-26] MEDS: Lactobacillis Acidophilus 2 CAP PO ×2 (08:24→22:13)
--- NOTE | 2024-04-26 08:24 | WOUNDNOTE ---
skin photo: left lower leg
--- NOTE | 2024-04-26 08:24 | WOUNDNOTE ---
skin photo: right lower leg
[2024-04-26] MEDS: Zinc Sulfate 50 mg zinc (220 mg) ORAL capsule PO (08:25)
[2024-04-26] MEDS: Cholecalciferol (Vit D3) 125 MCG CAPSULE (5,000 UNITS) PO (08:25)
[2024-04-26 09:25] LABS: Troponin-I HS 648 pg/mL (3.0-78.0)
--- NOTE | 2024-04-26 10:14 | CASEMGMT ---
JUSTIN AGRAWAL NOTE: Call received from Sara @ [facility]. She is aware pt has been admitted to [facility]. She states pt is active w/them for SN and PT. Lucille ZHENGN JUSTIN AGRAWAL
[2024-04-26] MEDS: levoFLOXacin IV 750 MG in Empty Viaflex Q24 100 MG IV (10:22)
[2024-04-26 10:23] VITALS: BP 159/73; PULSE 58; RESP 18; TEMP 36.7; O2SAT 95
[2024-04-26 10:47] LABS: M R Staph aureus DNA By PCR Negative (Negative); Probe Check PASS; Specimen Processing Control PASS; Staph aureus DNA By PCR NEGATIVE (Negative)
--- NOTE | 2024-04-26 10:50 | CASEMGMT ---
Addendum entered by Tianna Rodriguez 04/26/24 16:02: JUSTIN AGRAWAL into pt room, delivered list of local cardiologists. Original Note: JUSTIN AGRAWAL Assessment: Face to Face with pt for initial transition planning/care coordination assessment. JUSTIN AGRAWAL introduced self and role at [facility], pt voices understanding and consents to assessment. Pt is A&O x4 and answers all questions appropriately at this time. Pt sitting up in chair in no distress. Care providers, pharmacy, and demographics verified/updated. Admitting Dx: DFU with Cellulitis, NSTEMI II, and metabolic encephalopathy PCP: Leigh Yañez Specialists: Early Childhood Aide Classroom in [place] - Pt looking to change sld educational aide, would like list of local cardiologists. Preferred Pharmacy: [facility] [place] [facility] Prescription Benefit: yes LNOK: Jeremiah - son Living Arrangements: Pt lives alone in a 1 story home with 1 step to enter. Pt states I with ADLs, able to cook for himself, needs some assistance with cleaning. Transportation: Pt drives self some, family also helps with transportation. DME: Glucometer and supplies, walker, cane, wheelchair, lift chair, rollator, shower bench. HHC/SNF: Denies Hx with SNF, currently active with [facility] for SN and PT. Offered Pt list of HHC provider, denies list and would like to continue with [facility]. Pt states no concerns with going home at time of dc. Pt adamant about returning home and is not interested in SNF or rehab unit if recommended upon DC. Pt asked if able to get a pass to leave on April 28 to visit family here from out of town. Will notify CM on this floor. Pt states no further concerns/needs. CM to follow. Advised pt to ask CM if any further question/concerns/needs arise, voices understanding. Pt Goal: Home Plan: Home, will follow plan of care. Kathe ANDERSON CM
[2024-04-26 11:47] LABS: Bedside Glucose 103 mg/dL (74-106)
[2024-04-26 12:45] LABS: Troponin-I HS 607 pg/mL (3.0-78.0)
[2024-04-26 13:09] LABS: Hemoglobin A1c 5.8 % (3.8-5.6)
--- NOTE | 2024-04-26 13:10 | ADU_ITS ---
Reason For Study: HX Lt Fem-Pop BPG Right Velocities Left Velocities Ext. Iliac Artery, dist = 218.0 cm./sec. Ext Iliac Artery, dist = 184.0 cm./sec. Common Femoral Artery, mid = 98.9 cm./sec. Common Femoral Artery, mid = 184.0 cm./sec. Supf Femoral Artery, prox = 305.9 cm./sec. Lt SFA to POP BPG noted. Supf Femoral Artery, mid = 25.4 cm./sec. Prox Anastomosis - 282.7 cm/s Supf Femoral Artery, dist. = 22.6 cm./sec. Prox Graft - 66.2 cm/s Dist SFA collateral flow noted. Mid Graft - 63.7 cm/s Profunda Femoral Artery = 399.8 cm./sec. Dist Graft - 50.2 cm/s Popliteal Artery, mid = 30.1 cm./sec. Dist Anastomosis - 65.1cm/s. Post. Tibial Artery, prox = 38.6 cm./sec. Popliteal Artery, proximal, = 70.0 cm./sec. Post. Tibial Artery, mid = 12.0 cm./sec. Post Tibial Artery, mid = 10.6 cm./sec. Post. Tibial Artery, dist = 10.2 cm./sec. Peroneal Artery, mid = 24.8 cm./sec. Ant. Tibial Artery, prox = 52.7 cm./sec. Ant.Tibial Artery, prox = 22.7 cm./sec. Ant. Tibial Artery, mid = 37.7 cm./sec. Lt SFA appearsto be occluded at mid Ant. Tibial Artery, dist = 49.0 cm./sec. Limited Views of calf arteries obtained. Unable to visualize prox and mid Roger A. Peroneal Artery,dist = 11.0 cm./sec. Procedure The exam was diagnostic. Limited views obtained. Exam performed portable in patient room. /US Art Duplex Bilat Lower Ext Interpretation Summary Patent left femoral-popliteal bypass with >50% stenosis at proximal anastomosis . Patent right lower extremity arteries with >50% stenosis of the [place]etm[place] superfic ial femoral artery. Ordering Physician: Alpesh Wallis Referring Physician: Thao Doe Performed By: Ludwin Camara RVT
--- NOTE | 2024-04-26 13:10 | VDLE_ITS ---
Reason For Study: BLE PAin RIGHT LEFT CFV is compressible, spontaneous, phasic, CFV is compressible, spontaneous, phasic, competent and demonstrates normal competent, and demonstrates normal augmentation. augmentation. FV is compressible, spontaneous, phasic, FV is compressible, spontaneous, phasic, competent and demonstrates normal competent and demonstrates normal augmentation. augmentation. POP V is compressible, spontaneous, phasic, POP V is compressible, spontaneous, phasic, competent and demonstrates normal competent and demonstrates normal augmentation. augmentation. T/P Trunk is compressible. T/P Trunk is compressible. PTV is compressible. PTV is compressible. RT PerV is compressible. LT PerV is compressible. SFJ is competent and measures 0.71 cm. SFJ is competent and measures 0.52 cm. GSV proximal thigh measures 0.51 x 0.53 cm. HX Lt GSV harvest for CABG. GSV at knee measures 0.22 x 0.25 cm. SSV proximal calf is competent and measures SSV proximal calf is competent and measures 0.41x 0.46 cm. 0.46 x 0.51 cm. Bright intraluminal echoes noted within Rt SSV consistent w/ Chronic SVT. Procedure This is a venous duplex using B-mode, color flow and spectral Doppler. Exam performed portable in patient room. The exam was diagnostic. VL/Venous Duplex US - Gautam Extrem Interpretation Summary Deep veins of the bilateral lower extremities are patent and compressible segme ntally. There is no evidence of bilateral lower extremity deep vein thrombosis. The right great sap henous vein appears patent and compressible segmentally. Chronic superficial vein thrombosis noted in the right small saphenous vein. Negative for reflux bilateral Ordering Physician: Alpesh Wallis Referring Physician: Thao Doe Performed By: Ludwin Camara, T
--- NOTE | 2024-04-26 13:10 | ART_ITS ---
Reason For Study: PAD Procedure A bilateral lower extremity continuous wave Doppler with analog waveform analysis and ankle brachial indexes. Left Segmental Pressures Left posterior tibial artery = 64mmHg. Left dorsalis pedis artery = 98mmHg. Left digit = 34 mmHg. The left dorsalis pedis waveforms are monophasic. The left posterior tibial artery waveforms are monophasic. Right Segmental Pressures Right brachial= 148mmHg. Right posterior tibial artery = 87mmHg. Right dorsalis pedis artery = 86mmHg. Right digit = 42 mmHg. The right dorsalis pedis waveforms are monophasic. The right posterior tibial artery waveforms are monophasic. Indices The right ankle brachial index by the dorsalis pedis is 0.58. The right ankle brachial index by the posterior tibial artery is 0.59. The right digital-brachial index is 0.28. The left ankle brachial index by the dorsalis pedis is 0.66. The left ankle brachial index by the posterior tibial artery is 0.43. The left digital-brachial index is 0.23. VL/Ankle Brachial Index Interpretation Summary Right LELO 0.59, moderate arterial insufficiency. Doppler/PVR waveforms of the r ight ankle moderately diminished at rest. Left LELO 0.66, moderate arterial insufficiency. Doppler/PVR waveforms of the le ft ankle moderately diminished at rest. Ordering Physician: Alpesh Wallis Referring Physician: Thao Diaz MD Performed By: Liliana Madden RVT and Student
--- NOTE | 2024-04-26 13:11 | CON.PCM.SX_ITS ---
Assessment & Plan Assessment/Plan (1) DM type 2, uncontrolled, with lower extremity ulcer: PLAN: -will obtain arterial duplex/LELO to assess prior bypasses -also will evaluate for venous insufficiency -pending results +/- CTA -ok to proceed with digit surgery, will address vasculature after if necessary HPI Consult Data Date of Consult: 04/26/24 HPI Narrative HPI Narrative: JEAN CARLOS HUGHES, is a 73 M who presents with left foot digit wound that has been present for about 1 month. He also had episode of feeling dizzy which was primary reason for seeking attention. He has history of potentially bilateral femoral popliteal bypasses, CABG. His most recent ultrasound in his legs was about 2 years ago at another facility. He also has pigment deposition/thickening of skin in bilateral anterior lower legs and chronic edema. [facility] Medical History Diabetes Congestive heart failure (CHF) Stroke/cerebrovascular accident Home Medications ?Medication ?Instructions ?Recorded ?Last Taken ?Type atorvastatin 40 mg tablet 40 mg PO DAILY 04/26/24 Unknown History bupropion HCl 300 mg 24 hr tablet, 300 mg PO DAILY 04/26/24 Unknown History extended release glimepiride 1 mg tablet 1 mg PO DAILY 04/26/24 Unknown History lisinopril 20 mg tablet 20 mg PO DAILY 04/26/24 Unknown History meloxicam 7.5 mg tablet 7.5 mg PO DAILY PRN back 04/26/24 Unknown History Allergy/AdvReac Type Severity Reaction Status Date / Time Penicillins Allergy PT UNSURE Verified 04/26/24 07:31 OF REACTION Surgical History History of cholecystectomy Hx of CABG Social History Smoking Status: Current every day smoker tobacco type: cigarettes and smokeless tobacco ROS Constitutional Constitutional: Denies chills, fever(s), frequent falls, lethargy or weakness Eyes Eyes: Denies blind spots, change in vision or loss of vision ENT HEENT: Denies bleeding gums, hoarseness or sore throat Cardiovascular Cardiovascular: Denies abdominal pain, bluish discoloration of hand/feet, chest pain with activity, cold extremities, dyspnea on exertion, erythema on extremities, irregular heart rhythm, leg edema, leg ulcers, numbness in extremities or weakness in extremities Respiratory/Chest Respiratory/Chest: Denies cough, excessive phlegm production, shortness of breath at rest, shortness of breath with exertion or wheezing Gastrointestinal Gastrointestinal: Denies anorexia, change in stool character, constipation, diarrhea, melena or rectal bleeding Genitourinary Genitourinary: Denies dysuria or hematuria Musculoskeletal Musculoskeletal: Denies abnormal gait Integumentary Integumentary: Reports other Details: ; Denies erythema Neurologic Neurologic: Denies abnormal speech, focal weakness, headache(s), loss of vision, numbness, paresthesias or sensory deficit Hematologic/Lymphatic Hematologic/Lymphatic: Denies easy bleeding, easy bruising or lymphadenopathy Physical Exam Const alert, oriented x3, no apparent distress and healthy appearing General Appearance: cooperative; Negative for combative or lethargic Orientation / Consciousness: awake Exam Limitations: no limitations HEENT Head and Scalp: normocephalic and atraumatic Eyes EOMs intact bilaterally General Eye: normal appearance of both eyes Neck full ROM, no lymphadenopathy and thyroid normal General: trachea midline; Negative for lymphadenopathy or tenderness Thyroid: thyroid normal Resp normal respiratory effort and no use of accessory muscles Effort and Inspection: Negative for labored, stridor or audible wheezes Cardio regular rate and regular rhythm Peripheral Pulses: brachial pulses present and radial pulses present; Negative for popliteal pulses present, posterior tibial pulses present or dorsalis pedis pulses present Back/Spine Cervical Spine: cervical ROM normal Extremity full ROM, normal capillary refill and no clubbing, cyanosis or edema Skin no rashes or lesions noted Skin Narrative: hemosiderin/lipodermatosclerosis bilateral Neuro oriented x3, CN's II-XII intact bilaterally, no focal motor deficits and no sensory deficits noted Psych thought process normal, cooperative, affect normal, speech normal and activity/motor behavior normal Lab / Micro Data 04/26/24 06:17 04/26/24 06:17 Labs: Laboratory Results - last 24 hr 04/26/24 05:53: POC Glucose 78 04/26/24 06:17: WBC 10.2, RBC 4.51 L, Hgb 13.5, Hct 42.3, MCV 93.8, MCH 29.9, M CHC 31.9 L, RDW Std Deviation 57.7 H, RDW Coeff of Claritza 16.8 H, Plt Count 176, MPV 11.1, Immature Gran % (Auto) 0.700, Neut % (Auto) 86.6 H, Lymph % (Auto) 7.1 L, [place] % (Auto) 5.0, Eos % (Auto) 0.3, Baso % (Auto) 0.3, Absolute Neuts (auto) 8.9 H, Absolute Lymphs (auto) 0.73 L, Nucleated RBC % 0, ESR 43 H, Sodium 136, Potassium 3.9, Chloride 105, Carbon Dioxide 25.0, Anion Gap 6, BUN 18, C reatinine 1.53 H, Estim Creat Clear Calc 56.13, Est GFR (MDRD) Af Amer 57 L, Est GFR (MDRD) Non-Af 48 L, BUN/Creatinine Ratio 11.8, Glucose 92, Hemoglobin A1c 5.8 H, Calcium 8.4 L, Phosphorus 2.5, Magnesium 2.1, Total Bilirubin 1.20 H, AST 33, ALT 37, Alkaline Phosphatase 196 H, Troponin I High Sens 667 H*, C-React Prot Ext Range 87.90 H, Total Protein 6.8, Albumin 2.7 L, Globulin 4.1, A lbumin/Globulin Ratio 0.7 L, TSH 1.99 04/26/24 07:35: S.aureus Protein A PCR NEGATIVE, MRSA (PCR) Negative 04/26/24 08:28: Troponin I High Sens 648 H* 04/26/24 11:26: POC Glucose 103 04/26/24 12:02: Troponin I High Sens 607 H* Micro: Microbiology 04/26/24 05:45 Tissue Ulcer - 2nd Toe Gram Stain - Final Imaging Radiology Impression Lower Extremity CT 04/26/24 04:33 IMPRESSION: 1. Diffuse soft tissue swelling and edema. 2. No evidence of drainable abscess or gas in the soft tissues. 3. No evidence of destructive bony process. Electronically Signed: Mitchell Del Cid MD at 9:08 EDT ,
--- NOTE | 2024-04-26 14:40 | CHAPLAIN ---
Type of Pastoral Visit ___ Initial Visit ___ Follow-up Visit ___ On-call Visit ___ General Patient Visit ___ Spiritual Assessment ___ Family Conference ___ Bereavement ___ Rapid Response ___ Code Blue ___ Other (describe below) Pastoral Care Referral From ___ Patient ___ Family ___ Nurse ___ Physician ___ Plumbing Engineer ___ Fountain Brush Assembler ___ Other (describe below) Sacrament/Intervention ___ Active listening ___ Anointing ___ Buddhism ___ Bereavement ___ Communion ___ Mary Beth exploration ___ ___ Life review ___ Prayer ___ Reconciliation ___ Sacrament of Sick ___ Supportive presence ___ Wedding ___ Other (describe below) Pastoral Comments at time of attempted visit the patient was receiving testing
[2024-04-26] MEDS: Vancomycin IV 1,000 MG/200 ML BAG 200 MG IV (16:02)
[2024-04-26 16:05] VITALS: BP 153/61; PULSE 52; RESP 18; TEMP 36.8; O2SAT 97
[2024-04-26 16:58] LABS: Bedside Glucose 142 mg/dL (74-106)
--- NOTE | 2024-04-26 17:33 | CON.PCM.CA_ITS ---
Assessment & Plan Assessment/Plan (1) History of CHF (congestive heart failure): PLAN: He does have evidence of congestive heart failure and my recommendation at this time will be to continue optimizing his medical therapy with intravenous diuretics and beta-curtis. His echocardiogram demonstrated reduced ejection fraction of 45% which is global and we will continue him with guideline directed medical therapy. (2) History of coronary artery bypass graft x 3: PLAN: He is status post coronary bypass surgery. At this particular time I do not think that any invasive management approach to his current condition is warranted. (3) Elevated troponin: PLAN: He does have evidence of elevated troponin. If the above does not have a rise and fall pattern and is likely secondary to demand ischemia from his acute inflammatory process. I would not pursue the above any further at this time. HPI Consult Data Date of Consult: 04/26/24 HPI Narrative HPI Narrative: JEAN CARLOS HUGHES, is a 73 M who presents with dizziness, intermittent chills and confusion and lethargy. His son had just come from [place] and when he saw him in that state sent him to [facility] where he was evaluated and due to his cardiac history he was sent to [facility] for ongoing care. He has a past medical history of essential hypertension, hyperlipidemia, DM-2; uncontrolled with hyperglycemia, diabetic neuropathy, obesity; CAD; s/p CABG x 3 (~2009) PVD; s/p femoral bypasses of both lower extremities, chronic LE lymphedema; with chronic venous stasis followed by Home Health RN. He was admitted here to the hospital for ongoing treatment of a possible cellulitis or osteomyelitis of his leg and he had complained of minimal chest discomfort and cardiac enzymes were obtained which were noted to be abnormal. Cardiology was called for further management. He does have a history of a fusiform infrarenal abdominal aortic aneurysm measuring 3.9 cm. At the time he was seen he was noted to be pain-free and his EKG demonstrated no acute changes. [facility] Medical History Diabetes Congestive heart failure (CHF) Stroke/cerebrovascular accident Home Medications ?Medication ?Instructions ?Recorded ?Last Taken ?Type atorvastatin 40 mg tablet 40 mg PO DAILY 04/26/24 Unknown History bupropion HCl 300 mg 24 hr tablet, 300 mg PO DAILY 04/26/24 Unknown History extended release glimepiride 1 mg tablet 1 mg PO DAILY 04/26/24 Unknown History lisinopril 20 mg tablet 20 mg PO DAILY 04/26/24 Unknown History meloxicam 7.5 mg tablet 7.5 mg PO DAILY PRN back 04/26/24 Unknown History Allergy/AdvReac Type Severity Reaction Status Date / Time Penicillins Allergy PT UNSURE Verified 04/26/24 07:31 OF REACTION Surgical History History of cholecystectomy Hx of CABG Social History Smoking Status: Current every day smoker tobacco type: cigarettes and smokeless tobacco ROS Constitutional Constitutional: Denies fever(s) or weight loss Eyes Eyes: Reports systems reviewed and no addt'l complaints, except as documented ENT HEENT: Reports systems reviewed and no addt'l complaints, except as documented Cardiovascular Cardiovascular: Denies chest pain at rest, chest pain with activity, dyspnea at rest, dyspnea on exertion, edema, palpitations or paroxysmal nocturnal dyspnea Respiratory/Chest Respiratory/Chest: Denies dyspnea on exertion, productive cough, shortness of breath at rest or shortness of breath with exertion Gastrointestinal Gastrointestinal: Denies change in bowel habits, nausea, vomiting or weight changes Genitourinary Genitourinary: Denies difficulty urinating Musculoskeletal Musculoskeletal: Denies joint stiffness or muscle weakness Integumentary Integumentary: Denies lesions Neurologic Neurologic: Denies dizziness or syncope Psychiatric Psychiatric: Denies anxiety Endocrine Endocrinology: Denies excessive sweating or fatigue Hematologic/Lymphatic Hematologic/Lymphatic: Denies anemia Allergic/Immunologic Allergic/Immunologic: Denies seasonal rhinorrhea Physical Exam Const alert, oriented x3 and no apparent distress General Appearance: cooperative HEENT hearing grossly normal bilaterally Head and Scalp: atraumatic Eyes EOMs intact bilaterally Neck General: normal visual inspection Chest inspection of chest normal and palpation of chest normal Resp normal respiratory effort Auscultation: clear to auscultation bilaterally Cardio regular rate, regular rhythm, S1 normal heart sound and S2 normal heart sound Jugular Venous Distention: JVD GI normal to inspection, nondistended, normoactive bowel sounds Extremity Extremity Narrative: Bilateral wrapped legs with edema General Extremity: edema bilateral Peripheral Pulses: Yes pulses 2+ throughout and femoral pulses present Skin no rashes or lesions noted Neuro oriented x3 and CN's II-XII intact bilaterally Psych Appearance: grossly normal and appropriate Risk Stratification Risk Stratification Applicable: Yes Age >/= 65: Yes >/= 3 CAD Risk Factors (HTN, HLD, DM, family hx of CAD, or current smoker): Yes Aspirin Use in the Past 7 Days: No Severe Angina (>/= episodes in 24 hours): No EKG ST Changes >/= 0.5mm: No Positive Cardiac Marker: Yes KELSI Risk Stratification Score: 3 KELSI % Risk: 13% Risk Objective Data Vital Signs: Vital Signs Temp Pulse Resp BP Pulse Ox O2 Del Method 98.2 F 52 L 18 153/61 H 97 Room Air 04/26/24 16:05 04/26/24 16:05 04/26/24 16:05 04/26/24 16:05 04/26/24 16:05 04/26/24 16:05 Oxygen Delivery Method Room Air Weight: 274 lb 14.663 oz Body Mass Index (BMI) 39.4 Intake & Output: Intake and Output for Last 24 Hours 04/24/24 04/25/24 04/26/24 23:59 23:59 23:59 Intake Total 1399.00 / 1399.00 Output Total 200 / 200 Balance 1199.00 / 1199.00 Lab / Micro Data 04/26/24 06:17 04/26/24 06:17 Labs: Laboratory Results - last 24 hr 04/26/24 05:53: POC Glucose 78 04/26/24 06:17: WBC 10.2, RBC 4.51 L, Hgb 13.5, Hct 42.3, MCV 93.8, MCH 29.9, M CHC 31.9 L, RDW Std Deviation 57.7 H, RDW Coeff of [place]it[place] 16.8 H, Plt Count 176, MPV 11.1, Immature Gran % (Auto) 0.700, Neut % (Auto) 86.6 H, Lymph % (Auto) 7.1 L, [place] % (Auto) 5.0, Eos % (Auto) 0.3, Baso % (Auto) 0.3, Absolute Neuts (auto) 8.9 H, Absolute Lymphs (auto) 0.73 L, Nucleated RBC % 0, ESR 43 H, Sodium 136, Potassium 3.9, Chloride 105, Carbon Dioxide 25.0, Anion Gap 6, BUN 18, C reatinine 1.53 H, Estim Creat Clear Calc 56.13, Est GFR (MDRD) Af Amer 57 L, Est GFR (MDRD) Non-Af 48 L, BUN/Creatinine Ratio 11.8, Glucose 92, Hemoglobin A1c 5.8 H, Calcium 8.4 L, Phosphorus 2.5, Magnesium 2.1, Total Bilirubin 1.20 H, AST 33, ALT 37, Alkaline Phosphatase 196 H, Troponin I High Sens 667 H*, C-React Prot Ext Range 87.90 H, Total Protein 6.8, Albumin 2.7 L, Globulin 4.1, A lbumin/Globulin Ratio 0.7 L, TSH 1.99 04/26/24 07:35: S.aureus Protein A PCR NEGATIVE, MRSA (PCR) Negative 04/26/24 08:28: Troponin I High Sens 648 H* 04/26/24 11:26: POC Glucose 103 04/26/24 12:02: Troponin I High Sens 607 H* 04/26/24 16:04: POC Glucose 142 H Micro: Microbiology 04/26/24 05:45 Tissue Ulcer - 2nd Toe Gram Stain - Final Cardiology Labs/Tests 04/26/24 06:17: WBC 10.2, RBC 4.51 L, Hgb 13.5, Hct 42.3, MCV 93.8, MCH 29.9, M CHC 31.9 L, Plt Count 176, MPV 11.1, Immature Gran % (Auto) 0.700, Neut % (Auto) 86.6 H, Lymph % (Auto) 7.1 L, [place] % (Auto) 5.0, Eos % (Auto) 0.3, Baso % (Auto) 0.3, Absolute Neuts (auto) 8.9 H, Nucleated RBC % 0, Sodium 136, Potassium 3.9, Chloride 105, Carbon Dioxide 25.0, Anion Gap 6, BUN 18, Creatinine 1.53 H, Est GFR (MDRD) Af Amer 57 L, Est GFR (MDRD) Non-Af 48 L, BUN/Creatinine Ratio 11.8, Glucose 92, Hemoglobin A1c 5.8 H, Calcium 8.4 L, Phosphorus 2.5, Magnesium 2.1, Total Bilirubin 1.20 H Rhythm: EKG: ECHO: Stress Test: Cardiac Cath: PCI: CT Surgery: Holter monitor: EPS: PPM: CXR: Chest CT Scan: Radiography Diagnostic Testing: Radiology Impression Lower Extremity CT 04/26/24 04:33 IMPRESSION: 1. Diffuse soft tissue swelling and edema. 2. No evidence of drainable abscess or gas in the soft tissues. 3. No evidence of destructive bony process. Electronically Signed: Mitchell Del Cid MD at 9:08 EDT , Echocardiogram 04/26/24 04:43 Interpretation Summary The left ventricular ejection fraction is 45 %. Normal LV size. Mild (1+) eccentric mitral valve insufficiency. Mild concentric left ventricular hypertrophy. Mild to moderate (1-2+) tricuspid valve insufficiency. Pulmonary artery systolic pressure is 46 mmHg. Ordering Physician: Doni Carter Referring Physician: Thao Diaz Performed By: Briana Conte RVT, RDCS and Student Ankle Brachial Index 04/26/24 13:10 Interpretation Summary Right LELO 0.59, moderate arterial insufficiency. Doppler/PVR waveforms of the right ankle moderately diminished at rest. Left LELO 0.66, moderate arterial insufficiency. Doppler/PVR waveforms of the left ankle moderately diminished at rest. Ordering Physician: Alpesh Wallis Referring Physician: Thao Diaz MD Performed By: Liliana Madden RVT and Student Duplex Scan Lower Extremity Artery 04/26/24 13:10 Interpretation Summary Patent left femoral-popliteal bypass with >50% stenosis at proximal anastomosis. Patent right lower extremity arteries with >50% stenosis of the [place] superficial femoral artery. Ordering Physician: Alpesh Wallis Referring Physician: Thao Doe Performed By: Ludwin Camara RVT Venous Doppler Study 04/26/24 13:10 Interpretation Summary Deep veins of the bilateral lower extremities are patent and compressible segmentally. There is no evidence of bilateral lower extremity deep vein thrombosis. The right great saphenous vein appears patent and compressible segmentally. Chronic superficial vein thrombosis noted in the right small saphenous vein. Negative for reflux bilateral Ordering Physician: Alpesh Wallis Referring Physician: Thao Doe Performed By: Ludwin Camara, LEO
[2024-04-26 22:05] VITALS: BP 157/67; PULSE 53; RESP 18; TEMP 36.7; O2SAT 98
[2024-04-26 23:03] LABS: Bedside Glucose 132 mg/dL (74-106)
[2024-04-27 03:44] VITALS: BP 153/75; PULSE 59; RESP 18; TEMP 36.4; O2SAT 98
[2024-04-27] MEDS: Vancomycin IV 1,000 MG/200 ML BAG 200 MG IV ×2 (03:46→15:20)
[2024-04-27 06:00] VITALS: BMI 39.6
[2024-04-27 06:22] LABS: Absolute Neutrophil Count 4.4 X10^3/uL (2.0-7.7); Basophil# 0.02 X10^3/uL; Basophil% 0.3 % (0-1); Eosinophil# 0.16 X10^3/uL; Eosinophils% 2.5 % (0-5); Hematocrit 41.9 % (40-54); Hemoglobin 13.1 g/dL (13.0-16.5); Lymphocyte % 18.5 % (19-41); Mean Corp Hgb Conc 31.3 g/dL (32-36); Mean Corpuscular Volume 92.7 fL (80-94); Mean Platelet Vol. 11.4 fl (6.2-12.0); Monocyte# 0.61 X10^3/uL; Monocyte% 9.4 % (0-10); NRBC Flagged by Analyzer 0 % (0-5); Neutrophil # 4.43 X10^3/uL (2.7-7.7); Neutrophil % 68.5 % (47-70); Platelet Count 183 K/mm3 (150-450); RBC Distribution Width CV 16.8 % (11.6-14.6); RBC Distribution Width SD 57.2 fl (35.1-43.9); Red Blood Count 4.52 M/mm3 (4.6-6.2); White Blood Count 6.5 K/mm3 (4.4-11.0)
[2024-04-27 06:50] LABS: Bedside Glucose 110 mg/dL (74-106)
[2024-04-27 06:50] LABS: ALB/GLOB Ratio 0.6 RATIO (0.9-2.4); AST(SGOT) 39 U/L (15-37); Alanine Aminotransfer ALT/SGPT 33 U/L (16-61); Albumin, Serum 2.5 g/dL (3.2-5.0); Alkaline Phosphatase 173 U/L (45-117); Anion Gap 9 (5-15); BUN 21 mg/dL (7-18); BUN/Creat Ratio 15.6 RATIO (10-20); Calcium,Total 8.4 mg/dL (8.5-10.1); Chloride 103 mmol/L (98-107); Cholesterol 92 mg/dL (200); Creatinine, Serum 1.35 mg/dL (0.70-1.30); EST Glomerular Filtration Rate 55 mL/min (>60); Est Glom Filt Rate - Afr Amer 66 mL/min (>60); Estimated Creatinine Clearance 63.77 ml/min; Glucose 124 mg/dL (74-106); High Density Lipoprotein 41 mg/dL; Potassium 3.9 mmol/L (3.5-5.1); Protein, Total 6.5 g/dL (6.4-8.2); Sodium Level 135 mmol/L (136-145); Triglycerides 61 mg/dL; Very Low Density Lipoprotein 12 mg/dL (5-40)
[2024-04-27 07:54] VITALS: BP 153/60; PULSE 52; RESP 18; TEMP 36.5; O2SAT 100
[2024-04-27 07:56] VITALS: O2SAT 94
[2024-04-27] MEDS: Ascorbic Acid 500 MG Tablet 1000 MG PO ×2 (09:25→16:21)
[2024-04-27] MEDS: levoFLOXacin IV 750 MG in Empty Viaflex Q24 100 MG IV (09:26)
[2024-04-27] MEDS: Cholecalciferol (Vit D3) 125 MCG CAPSULE (5,000 UNITS) PO (09:26)
[2024-04-27] MEDS: Zinc Sulfate 50 mg zinc (220 mg) ORAL capsule PO (09:26)
[2024-04-27] MEDS: Lactobacillis Acidophilus 2 CAP PO (09:26)
[2024-04-27 11:10] VITALS: BP 155/55; PULSE 62; RESP 18; TEMP 36.4; O2SAT 97
[2024-04-27] MEDS: Insulin Lispro 100 UNIT/ML INSULN.PEN SC ×2 (11:41→16:20)
[2024-04-27 11:49] LABS: Bedside Glucose 166 mg/dL (74-106)
[2024-04-27 12:16] VITALS: BP 140/59; PULSE 54; RESP 18; TEMP 36.5; O2SAT 99
--- NOTE | 2024-04-27 13:33 | PN.SURG_ITS ---
Subjective Subjective Doing well, no complaints. Objective Data Objective Data A&O x 3, NAD RRR resp non labored foot dressing intact Vital Signs: Vital Signs Temp Pulse Resp BP Pulse Ox O2 Del Method 97.7 F L 54 L 18 140/59 H 99 Room Air 04/27/24 12:16 04/27/24 12:16 04/27/24 12:16 04/27/24 12:16 04/27/24 12:16 04/27/24 12:16 Oxygen Delivery Method Room Air Weight: 276 lb 3.827 oz Body Mass Index (BMI) 39.6 Intake & Output: Intake and Output for Last 24 Hours 04/25/24 04/26/24 04/27/24 23:59 23:59 23:59 Intake Total 2117.17 / 2117.17 1910.00 / 1910.00 Output Total 750 / 750 625 / 625 Balance 1367.17 / 1367.17 1285.00 / 1285.00 Lab / Micro Data 04/27/24 05:00 04/27/24 05:00 Labs: Laboratory Results - last 24 hr 04/26/24 16:04: POC Glucose 142 H 04/26/24 22:12: POC Glucose 132 H 04/27/24 05:00: WBC 6.5, RBC 4.52 L, Hgb 13.1, Hct 41.9, MCV 92.7, MCH 29.0, M CHC 31.3 L, RDW Std Deviation 57.2 H, RDW Coeff of Claritza 16.8 H, Plt Count 183, MPV 11.4, Immature Gran % (Auto) 0.800, Neut % (Auto) 68.5, Lymph % (Auto) 18.5 L, [place] % (Auto) 9.4, Eos % (Auto) 2.5, Baso % (Auto) 0.3, Absolute Neuts (auto) 4.4, Absolute Lymphs (auto) 1.20, Nucleated RBC % 0, Sodium 135 L, Potassium 3.9, Chloride 103, Carbon Dioxide 23.0, Anion Gap 9, BUN 21 H, Creatinine 1.35 H , Estim Creat Clear Calc 63.77, Est GFR (MDRD) Af Amer 66, Est GFR (MDRD) Non-Af 55 L, BUN/Creatinine Ratio 15.6, Glucose 124 H, Calcium 8.4 L, Total Bilirubin 0.80, AST 39 H, ALT 33, Alkaline Phosphatase 173 H, Total Protein 6.5, Albumin 2.5 L, Globulin 4.0, Albumin/Globulin Ratio 0.6 L, Triglycerides 61, Cholesterol 92, LDL Cholesterol 39, VLDL Cholesterol 12, HDL Cholesterol 41 04/27/24 06:31: POC Glucose 110 H 04/27/24 11:29: POC Glucose 166 H Micro: Microbiology 04/26/24 05:45 Tissue Ulcer - 2nd Toe Gram Stain - Final 04/26/24 05:45 Tissue Ulcer - 2nd Toe Wound Culture - Preliminary Mixed Gram Positive Organisms Radiography Diagnostic Testing: Radiology Impression Echocardiogram 04/26/24 04:43 Interpretation Summary The left ventricular ejection fraction is 45 %. Normal LV size. Mild (1+) eccentric mitral valve insufficiency. Mild concentric left ventricular hypertrophy. Mild to moderate (1-2+) tricuspid valve insufficiency. Pulmonary artery systolic pressure is 46 mmHg. Ordering Physician: Doni Carter Referring Physician: Thao Diaz Performed By: Briana Conte RVT, RDCS and Student Ankle Brachial Index 04/26/24 13:10 Interpretation Summary Right LELO 0.59, moderate arterial insufficiency. Doppler/PVR waveforms of the right ankle moderately diminished at rest. Left LELO 0.66, moderate arterial insufficiency. Doppler/PVR waveforms of the left ankle moderately diminished at rest. Ordering Physician: Alpesh Wallis Referring Physician: Thao Diaz MD Performed By: Liliana Madden RVT and Student Duplex Scan Lower Extremity Artery 04/26/24 13:10 Interpretation Summary Patent left femoral-popliteal bypass with >50% stenosis at proximal anastomosis. Patent right lower extremity arteries with >50% stenosis of the [place] superficial femoral artery. Ordering Physician: Alpesh Wallis Referring Physician: Thao Doe Performed By: Ludwin Camara RVT Venous Doppler Study 04/26/24 13:10 Interpretation Summary Deep veins of the bilateral lower extremities are patent and compressible segmentally. There is no evidence of bilateral lower extremity deep vein thrombosis. The right great saphenous vein appears patent and compressible segmentally. Chronic superficial vein thrombosis noted in the right small saphenous vein. Negative for reflux bilateral Ordering Physician: Alpesh Wallis Referring Physician: Thao Doe Performed By: Ludwin Camara RVT Assessment & Plan Assessment/Plan (1) Unspecified atherosclerosis of [place] arteries of extremities, bilateral legs: QUALIFIERS: Peripheral atherosclerosis clinical manifestation: w ith ulceration Lower extremity ulceration location: other part of foot Q ualified Code(s): I70.235 - Atherosclerosis of [place] arteries of right leg with ulceration of other part of foot; I70.245 - Atherosclerosis of [place] arteries of left leg with ulceration of other part of foot PLAN: -duplex revealed patent left fem-pop with proximal stenosis, LELO 0.6; suspect may also have infrapopliteal disease as well -D/W podiatry, hospitalist; jamal for DC with plans for outpatient angio Wednesday; may keep overnight and have podiatry perform their procedure following day
--- NOTE | 2024-04-27 15:51 | PCM.DC.SUM ---
Providers Date of Admission: 04/26/24 Date of Discharge: 04/27/24 Primary Care Physician: Dr. Thao Yañez MD Consultations 04/26/24 04:42 Consult: Podiatry Routine Consulting Provider: Al Hedrick Reason for Consult: Left DFU with Cellulitis and suspected osteomyelitis. EMERGENT Consult: No MD Notified: Yes Date Notified: 04/26/24 Time Notified: 06:25 Method of Notification: Text 04/26/24 04:47 Consult: Cardiology Routine Consulting Provider: [facility] Reason for Consult: Elevated troponin w/ suspected NSTEMI-II w/ likley need for surg for L DFU. EMERGENT Consult: No MD Notified: Yes Date Notified: 04/26/24 Time Notified: 06:32 Method of Notification: Text Method of Consult:: In-Person 04/26/24 05:43 Consult: Vascular Surgery Routine Consulting Provider: Alpesh Wallis Reason for Consult: weak pulses, diabetic foot ulcers, hx bypass EMERGENT Consult: No MD Notified: Yes Date Notified: 04/26/24 Time Notified: 06:28 Method of Notification: Text Reason For Visit: DFU WITH CELLULITIS, NSTEMI II, & METABOLIC Diagnosis Discharge Diagnosis (1) Unspecified atherosclerosis of [place] arteries of extremities, bilateral legs: Status: Acute Code(s): I70.203 - Unspecified atherosclerosis of [place] arteries of extremities, bilateral legs Qualifiers: Lower extremity ulceration location: other part of foot Peripheral atherosclerosis clinical manifestation: with ulceration Qualified Code(s): I70.235 - Atherosclerosis of [place] arteries of right leg with ulceration of other part of foot; I70.245 - Atherosclerosis of [place] arteries of left leg with ulceration of other part of foot Plan 73-year-old man with multiple comorbidities including coronary artery disease with previous CABG, peripheral arterial disease with femoral bypasses involving both lower extremities who was transferred from [facility] on account of left DFU with cellulitis and suspected osteomyelitis as well as decreased pulses in the left lower extremities. Will showed deep veins of bilateral lower extremities were patent and compressible, no evidence of DVT, right great saphenous vein was patent and compressible, chronic superficial vein thrombosis in the right small saphenous vein was noted. Patient was seen by vascular surgery, based on the duplex results we will plan for an outpatient angiography on Wednesday and have podiatry performed the procedure with amputation on Wednesday. For his cellulitis he is being discharged with levofloxacin and Doxycycline to be started from tomorrow. He has got his antibiotic doses for today. Medications at Discharge Home Medications atorvastatin 40 mg tablet 40 mg PO DAILY 04/26/24 bupropion HCl 300 mg 24 hr tablet, extended release 300 mg PO DAILY 04/26/24 glimepiride 1 mg tablet 1 mg PO DAILY 04/26/24 lisinopril 20 mg tablet 20 mg PO DAILY 04/26/24 meloxicam 7.5 mg tablet 7.5 mg PO DAILY PRN back 04/26/24 doxycycline hyclate 100 mg capsule 100 mg PO BID #20 caps 04/27/24 levofloxacin 750 mg tablet 750 mg PO DAILY #10 tabs 04/27/24 Hospital Course Operations None Procedures None Summary of Care Provided Hospital Course: 73-year-old male with history of type 2 diabetes, diabetic neuropathy obesity, diabetic foot, chronic tobacco use, coronary artery disease, congestive heart failure, peripheral vascular disease, chronic venous stasis, was transferred from [facility] to [facility] to evaluate left diabetic foot with cellulitis and suspected osteomyelitis and leukocytosis of 14.6. #Left diabetic foot with cellulitis -Evaluated by infectious disease, vascular surgery, podiatry during his hospitalization -Doppler showed patent vasculature -Plan for angiography as an outpatient -Was started on IV vancomycin and levofloxacin during this hospitalization given the concerns regarding leukocytosis -Will transition IV antibiotics to oral doxycyclin and levofloxacin till his outpatient evaluation by vascular surgery and podiatry #Coronary artery disease, type II NSTEMI -Evaluated by cardiology -Will restart Lasix 20 mg daily given his underlying kidney disease -Follow-up with cardiology as an outpatient -No inpatient evaluation was recommended #Peripheral vascular disease s/p femoral bypass of both lower extremities -Follow-up with vascular surgery as an outpatient -Plan for angiogram as an outpatient #Concerns regarding metabolic encephalopathy: -AOx3 during her evaluation in the hospital -Continue to monitor #Chronic tobacco use: Follow-up as an outpatient, cessation recommended #Essential hypertension: Continue home medications #Hyperlipidemia: Resume statin and outpatient evaluation # History of CVA with Head CT at previous hospital revealing chronic appearing lacunar infarct in the Right thalamus with small bilateral mastoid effusions that were nonspecific - Noted. # Obesity; with BMI of 39.4 this admission with suspected JADA # History of cholecystectomy - Noted. # Depression - Continue home medications as previous. # OA; s/p bilateral TKR's and THR - Give Tylenol prn. Physical Exam Const alert and oriented x3 HEENT normocephalic Eyes PERRL Neck no lymphadenopathy Resp normal respiratory effort Cardio regular rate and regular rhythm GI normal to inspection, nondistended, normoactive bowel sounds Extremity Extremity Narrative: Bilateral nonpitting edema present with erythema, left great toe necrotic changes present Skin no rashes or lesions noted Neuro oriented x3 Neuro Narrative: Bilateral close stocking neuropathy, decreased sensation in bilateral lower extremities extending up to the knees Sensorium / Orientation: awake and alert Weight / BMI Weight Weight: 276 lb 3.827 oz Body Mass Index (BMI) 39.6 ABG / Lab / Microbiology Data 04/27/24 05:00 04/27/24 05:00 Laboratory: Laboratory Results - last 24 hr 04/26/24 16:04: POC Glucose 142 H 04/26/24 22:12: POC Glucose 132 H 04/27/24 05:00: WBC 6.5, RBC 4.52 L, Hgb 13.1, Hct 41.9, MCV 92.7, MCH 29.0, MCHC 31.3 L, RDW Std Deviation 57.2 H, RDW Coeff of Claritza 16.8 H, Plt Count 183, MPV 11.4, Immature Gran % (Auto) 0.800, Neut % (Auto) 68.5, Lymph % (Auto) 18.5 L, [place] % (Auto) 9.4, Eos % (Auto) 2.5, Baso % (Auto) 0.3, Absolute Neuts (auto) 4.4, Absolute Lymphs (auto) 1.20, Nucleated RBC % 0, Sodium 135 L, Potassium 3.9, Chloride 103, Carbon Dioxide 23.0, Anion Gap 9, BUN 21 H, Creatinine 1.35 H, Estim Creat Clear Calc 63.77, Est GFR (MDRD) Af Amer 66, Est GFR (MDRD) Non-Af 55 L, BUN/Creatinine Ratio 15.6, Glucose 124 H, Calcium 8.4 L, Total Bilirubin 0.80, AST 39 H, ALT 33, Alkaline Phosphatase 173 H, Total Protein 6.5, Albumin 2.5 L, Globulin 4.0, Albumin/Globulin Ratio 0.6 L, Triglycerides 61, Cholesterol 92, LDL Cholesterol 39, VLDL Cholesterol 12, HDL Cholesterol 41 04/27/24 06:31: POC Glucose 110 H 04/27/24 11:29: POC Glucose 166 H Microbiology: Microbiology 04/26/24 05:45 Tissue Ulcer - 2nd Toe Gram Stain - Final 04/26/24 05:45 Tissue Ulcer - 2nd Toe Wound Culture - Preliminary Mixed Gram Positive Organisms Radiography Diagnostic Testing: Radiology Impression Duplex Scan Lower Extremity Artery 04/26/24 13:10 Interpretation Summary Patent left femoral-popliteal bypass with >50% stenosis at proximal anastomosis. Patent right lower extremity arteries with >50% stenosis of the [place] superficial femoral artery. Ordering Physician: Alpesh Wallis Referring Physician: Thao Doe Performed By: Ludwin Camara, LEO Venous Doppler Study 04/26/24 13:10 Interpretation Summary Deep veins of the bilateral lower extremities are patent and compressible segmentally. There is no evidence of bilateral lower extremity deep vein thrombosis. The right great saphenous vein appears patent and compressible segmentally. Chronic superficial vein thrombosis noted in the right small saphenous vein. Negative for reflux bilateral Ordering Physician: Alpesh Wallis Referring Physician: Thao Doe Performed By: Ludwin Camara, LEO D/C Instructions Discharge Diet: 2000 mg Sodium Diet Discharge Activity: Return to Normal Activity Meaningful Use Info Meaningful Use Meaningful Use Diagnoses (Choose all that apply): None applicable Ischemic Stroke Statin Dosing Therapy Reference: STATIN DOSE THERAPY REFERENCE: * Patients > 75 years receive moderate or high dose statin therapy. * Patients 75 years or YOUNGER should receive HIGH intensity statin dose unless contraindicated. You will be required to document reason for non-treatment if statin daily dose does not meet guidelines. HIGH DOSE STATIN THERAPY DAILY Atorvastatin > than or = to 40 mg Rosuvastatin > than or = to 20 mg Amlodipine + Atorvastatin > than or = to 2.5/40 mg Ezetimibe + Simvastatin 10/80 mg Simvastatin 80mg Discharge Plan Admission Admit Date/Time: 04/26/24 04:30 Attending Provider: Marlene Lopes Primary Care Provider: Thao Diaz Consulting Providers: Doni Carter; Felicia Tavera; Clyde Best; Praneeth Lane; Edin Penaloza; Man Tony; Michi Ponce; Meryl Swan; Al Lorenzo; Elizabeth Butt; Sebastian Zelaya; Andres Conte [employer] MEAS[employer]ER; Felicia Curran NP; Anabel Dye; Al Hedrick; Alpesh Wallis; Doin Martinez Discharge Orders/Prescriptions Prescriptions: New levofloxacin 750 mg tablet 750 mg PO DAILY Qty: 10 0RF doxycycline hyclate 100 mg capsule 100 mg PO BID Qty: 20 0RF Continued atorvastatin 40 mg tablet 40 mg PO DAILY lisinopril 20 mg tablet 20 mg PO DAILY glimepiride 1 mg tablet 1 mg PO DAILY meloxicam 7.5 mg tablet 7.5 mg PO DAILY PRN (Reason: back) bupropion HCl 300 mg tablet extended release 24 hr 300 mg PO DAILY Referrals / Follow Up: Thao Diaz MD [Primary Care Provider] - Disposition Disposition (needs filled in before D/C Order can be placed): Home, Self Care
[2024-04-27 16:17] VITALS: BP 160/61; PULSE 69; RESP 18; TEMP 36.6; O2SAT 100
--- NOTE | 2024-04-27 17:00 | NURSING ---
Provided patient with written and verbal discharge information. Patient doesn't have any questions at this time. Son is to come pick patient up.
[2024-04-27 17:46] LABS: Bedside Glucose 170 mg/dL (74-106)
--- NOTE | 2024-04-28 09:41 | CASEMGMT ---
Discharge Planning Resumption referral and discharge summary sent to [facility] via [facility]. Marlene Valenzuela DC Planning Asst.
== END 2024-04-27 17:22 | disposition home health service (06) | DRG 637 ==
PROVIDERS: Internal Medicine; Admitting Provider Internal Medicine; PCP Family Medicine; Visit Provider Internal Medicine
DX: E11.621 Type 2 diabetes mellitus with foot ulcer (principal); I70.235 Atherosclerosis of native arteries of right leg with ulceration of other part of foot; I70.245 Atherosclerosis of native arteries of left leg with ulceration of other part of foot; L97.526 Non-pressure chronic ulcer of other part of left foot with bone involvement without evidence of necrosis; L97.519 Non-pressure chronic ulcer of other part of right foot with unspecified severity; K74.60 Unspecified cirrhosis of liver; I13.0 Hypertensive heart and chronic kidney disease with heart failure and stage 1 through stage 4 chronic kidney disease, or unspecified chronic kidney disease; I50.9 Heart failure, unspecified; E11.22 Type 2 diabetes mellitus with diabetic chronic kidney disease; E11.51 Type 2 diabetes mellitus with diabetic peripheral angiopathy without gangrene; E11.42 Type 2 diabetes mellitus with diabetic polyneuropathy; N18.30 Chronic kidney disease, stage 3 unspecified; G93.41 Metabolic encephalopathy; L03.032 Cellulitis of left toe; F32.A Depression, unspecified; E78.5 Hyperlipidemia, unspecified; F17.210 Nicotine dependence, cigarettes, uncomplicated; E66.9 Obesity, unspecified; R41.82 Altered mental status, unspecified; Z79.84 Long term (current) use of oral hypoglycemic drugs; Z86.73 Personal history of transient ischemic attack (TIA), and cerebral infarction without residual deficits; R79.89 Other specified abnormal findings of blood chemistry; Z95.1 Presence of aortocoronary bypass graft; Z68.39 Body mass index [BMI] 39.0-39.9, adult; I89.0 Lymphedema, not elsewhere classified; F17.220 Nicotine dependence, chewing tobacco, uncomplicated; Z79.899 Other long term (current) drug therapy; R42 Dizziness and giddiness; R60.0 Localized edema
CPT/HCPCS: 36415; 73700; 80053; 80061; 82962; 83036; 83735; 84100; 84443; 84484; 85025; 85652; 86140; 87070; 87077; 87186; 87205; 87640; 93005; 93306; 93922; 93925; 93970; 94668; 96365; 96366; 96367; 96372; 97116; 97162; 97802; 99221; Q9957; C8929; G0378; G0379

== ENCOUNTER 2024-05-18 06:53 | Day surgery (SDC) | payer MEDICARE, SELFPAY ==
[2024-05-18 07:23] VITALS: BMI 39.4
--- NOTE | 2024-05-18 09:20 | OP.PCM_ITS ---
Report of Operation Date of Procedure: 05/18/24 Pre-Operative Diagnosis: atherosclerosis with ulceration, left lower extremity Post-Operative Diagnosis: same Surgery/Procedure Performed:: aortogram, left lower extremity runoff IVUS popliteal, fem-pop bypass, common femoral, external iliac, common iliac Surgeon: Alpesh Wallis Type of Anesthesia: Local and Sedation,Conscious Estimated Blood Loss (mL): 2 Description of Procedure: HPI: Patient is a 73-year-old male history of peripheral vascular disease and prior left femoral-popliteal bypass who was found to have a new left lower extremity digit wound that has had delayed wound healing. He had a noninvasive vascular study that suggested a stenosis of moderate degree at the proximal anastomosis with poorly visualized tibial vessels. He is taken now for angiogram with possible intervention. Description of procedure: Upon obtaining form consent and verification correct patient procedure and site patient was taken to the [facility] where he was positioned prepped and draped in usual sterile fashion. Time was performed conscious sedation administered Versed and fentanyl. Skin overlying the right common femoral artery was anesthetized 1% lidocaine the vessel accessed with a micropuncture needle wire under ultrasound guidance. This was then exchanged for micropuncture sheath through which hand-injection femoral angiogram was performed revealing satisfactory positioning with no extravasation or dissection. Through the micropuncture sheath Bentson wire is advanced into the abdominal aorta and the micropuncture sheath exchanged for a short 6 [place] sheath. Through the 6 [place] sheath a Omni Flush catheter was advanced and digital subtraction aortogram pelvic angiogram was performed. We then navigated into the contralateral iliac system with the Omni Flush catheter and Bentson wire advancing our catheter into the distal external iliac artery. From this position sequential subtraction angiography was performed of the left lower extremity. The patient had a prior history of a left hip replacement and left knee replacement which limited some of the views of the vasculature so a command 18 wire was advanced via the Omni Flush catheter and positioned in the mid bypass graft. The Omni Flush catheter was then exchanged for an intravascular ultrasound probe advanced over the wire and the wire and catheter together advanced into the below the knee popliteal artery. A recorded pullback was performed of the popliteal artery, the femoral-popliteal bypass, the common femoral artery, the external iliac artery and the common iliac artery. This revealed a less than 50% stenosis of the proximal anastomosis of the bypass graft otherwise scattered moderate atherosclerosis with no significant stenosis. This corresponded with the angiographic findings of the same vessels. The angiography images obtained of the infrapopliteal vessels revealed a distal popliteal occlusion with reconstitution at the origin of the anterior tibial artery. The anterior tibial artery was the dominant runoff to the foot with a patent large-caliber vessel filling the vessels of the foot. The tibioperoneal trunk was patent with no significant atherosclerosis or stenosis in the peroneal artery was a patent vessel with mild diffuse atherosclerosis. The posterior tibial artery was occluded at origin with no visualized reconstitution. It was felt that the location of the lesion and its total occlusion nature with reconstitution at the origin of the anterior tibial artery represented a high risk intervention and the patient's bypass graft was not in jeopardy given the current flow characteristics. Patient also has had some marginal gains in his wound healing so no intervention was undertaken. Wires and catheters then withdrawn and a minx closure device deployed followed by 2 minutes of manual pressure. The patient was then taken recovery room with anticipated discharged home.
--- NOTE | 2024-06-05 11:07 | PCM.HP.BLA ---
History and Physical Assessment/Plan (1) DM type 2, uncontrolled, with lower extremity ulcer: PLAN: -will obtain arterial duplex/LELO to assess prior bypasses -also will evaluate for venous insufficiency -pending results +/- CTA -ok to proceed with digit surgery, will address vasculature after if necessary HPI Consult Data Date of Consult: 04/26/24 HPI Narrative HPI Narrative: JEAN CARLOS HUGHES, is a 73 M who presents with left foot digit wound that has been present for about 1 month. He also had episode of feeling dizzy which was primary reason for seeking attention. He has history of potentially bilateral femoral popliteal bypasses, CABG. His most recent ultrasound in his legs was about 2 years ago at another facility. He also has pigment deposition/thickening of skin in bilateral anterior lower legs and chronic edema. [facility], [facility] Medical History Diabetes Congestive heart failure (CHF) Stroke/cerebrovascular accident Home Medications ?Medication ?Instructions ?Recorded ?Last Taken ?Type atorvastatin 40 mg tablet 40 mg PO DAILY 04/26/24 Unknown History bupropion HCl 300 mg 24 hr tablet, 300 mg PO DAILY 04/26/24 Unknown History extended release glimepiride 1 mg tablet 1 mg PO DAILY 04/26/24 Unknown History lisinopril 20 mg tablet 20 mg PO DAILY 04/26/24 Unknown History meloxicam 7.5 mg tablet 7.5 mg PO DAILY PRN back 04/26/24 Unknown History Allergy/AdvReac Type Severity Reaction Status Date / Time Penicillins Allergy PT UNSURE Verified 04/26/24 07:31 OF REACTION Surgical History History of cholecystectomy Hx of CABG Social History Smoking Status: Current every day smoker tobacco type: cigarettes and smokeless tobacco ROS Constitutional Constitutional: Denies chills, fever(s), frequent falls, lethargy or weakness Eyes Eyes: Denies blind spots, change in vision or loss of vision ENT HEENT: Denies bleeding gums, hoarseness or sore throat Cardiovascular Cardiovascular: Denies abdominal pain, bluish discoloration of hand/feet, chest pain with activity, cold extremities, dyspnea on exertion, erythema on extremities, irregular heart rhythm, leg edema, leg ulcers, numbness in extremities or weakness in extremities Respiratory/Chest Respiratory/Chest: Denies cough, excessive phlegm production, shortness of breath at rest, shortness of breath with exertion or wheezing Gastrointestinal Gastrointestinal: Denies anorexia, change in stool character, constipation, diarrhea, melena or rectal bleeding Genitourinary Genitourinary: Denies dysuria or hematuria Musculoskeletal Musculoskeletal: Denies abnormal gait Integumentary Integumentary: Reports other Details: ; Denies erythema Neurologic Neurologic: Denies abnormal speech, focal weakness, headache(s), loss of vision, numbness, paresthesias or sensory deficit Hematologic/Lymphatic Hematologic/Lymphatic: Denies easy bleeding, easy bruising or lymphadenopathy Physical Exam Const alert, oriented x3, no apparent distress and healthy appearing General Appearance: cooperative; Negative for combative or lethargic Orientation / Consciousness: awake Exam Limitations: no limitations HEENT Head and Scalp: normocephalic and atraumatic Eyes EOMs intact bilaterally General Eye: normal appearance of both eyes Neck full ROM, no lymphadenopathy and thyroid normal General: trachea midline; Negative for lymphadenopathy or tenderness Thyroid: thyroid normal Resp normal respiratory effort and no use of accessory muscles Effort and Inspection: Negative for labored, stridor or audible wheezes Cardio regular rate and regular rhythm Peripheral Pulses: brachial pulses present and radial pulses present; Negative for popliteal pulses present, posterior tibial pulses present or dorsalis pedis pulses present Back/Spine Cervical Spine: cervical ROM normal Extremity full ROM, normal capillary refill and no clubbing, cyanosis or edema Skin no rashes or lesions noted Skin Narrative: hemosiderin/lipodermatosclerosis bilateral Neuro oriented x3, CN's II-XII intact bilaterally, no focal motor deficits and no sensory deficits noted Psych thought process normal, cooperative, affect normal, speech normal and activity/motor behavior normal Lab / Micro Data 04/26/24 06:17 04/26/24 06:17 Labs: Laboratory Results - last 24 hr 04/26/24 05:53: POC Glucose 78 04/26/24 06:17: WBC 10.2, RBC 4.51 L, Hgb 13.5, Hct 42.3, MCV 93.8, MCH 29.9, MCHC 31.9 L, RDW Std Deviation 57.7 H, RDW Coeff of Claritza 16.8 H, Plt Count 176, MPV 11.1, Immature Gran % (Auto) 0.700, Neut % (Auto) 86.6 H, Lymph % (Auto) 7.1 L, [place] % (Auto) 5.0, Eos % (Auto) 0.3, Baso % (Auto) 0.3, Absolute Neuts (auto) 8.9 H, Absolute Lymphs (auto) 0.73 L, Nucleated RBC % 0, ESR 43 H, Sodium 136, Potassium 3.9, Chloride 105, Carbon Dioxide 25.0, Anion Gap 6, BUN 18, Creatinine 1.53 H, Estim Creat Clear Calc 56.13, Est GFR (MDRD) Af Amer 57 L, Est GFR (MDRD) Non-Af 48 L, BUN/Creatinine Ratio 11.8, Glucose 92, Hemoglobin A1c 5.8 H, Calcium 8.4 L, Phosphorus 2.5, Magnesium 2.1, Total Bilirubin 1.20 H, AST 33, ALT 37, Alkaline Phosphatase 196 H, Troponin I High Sens 667 H*, C-React Prot Ext Range 87.90 H, Total Protein 6.8, Albumin 2.7 L, Globulin 4.1, Albumin/Globulin Ratio 0.7 L, TSH 1.99 04/26/24 07:35: S.aureus Protein A PCR NEGATIVE, MRSA (PCR) Negative 04/26/24 08:28: Troponin I High Sens 648 H* 04/26/24 11:26: POC Glucose 103 04/26/24 12:02: Troponin I High Sens 607 H* Micro: Microbiology 04/26/24 05:45 Tissue Ulcer - 2nd Toe Gram Stain - Final Imaging Radiology Impression Lower Extremity CT 04/26/24 04:33 IMPRESSION: 1. Diffuse soft tissue swelling and edema. 2. No evidence of drainable abscess or gas in the soft tissues. 3. No evidence of destructive bony process.
== END 2024-05-18 12:20 | disposition home or self-care (01) ==
PROVIDERS: PCP Family Medicine; Referring Provider Surgery Trauma Surgery; Visit Provider Surgery Trauma Surgery
DX: I70.248 Atherosclerosis of native arteries of left leg with ulceration of other part of lower leg (principal); E11.622 Type 2 diabetes mellitus with other skin ulcer; L97.929 Non-pressure chronic ulcer of unspecified part of left lower leg with unspecified severity; I50.9 Heart failure, unspecified; E11.51 Type 2 diabetes mellitus with diabetic peripheral angiopathy without gangrene; Z96.642 Presence of left artificial hip joint; Z96.652 Presence of left artificial knee joint; Z95.820 Peripheral vascular angioplasty status with implants and grafts; I70.92 Chronic total occlusion of artery of the extremities; Z79.84 Long term (current) use of oral hypoglycemic drugs; F17.210 Nicotine dependence, cigarettes, uncomplicated; R42 Dizziness and giddiness; Z79.899 Other long term (current) drug therapy; F17.220 Nicotine dependence, chewing tobacco, uncomplicated; M79.89 Other specified soft tissue disorders; R60.9 Edema, unspecified; Z95.1 Presence of aortocoronary bypass graft
CPT/HCPCS: 36200; 36245; 37252; 37253; 75625; 75710; 76937; 99152; 99153; C1769; C1894; Q9967; A4216